=== PATIENT | female | born 1990 ===

== ENCOUNTER 2023-10-05 06:05 | Inpatient (IN) ==
[2023-10-05] MEDS ORDERED: Lidocaine 1% VIAL 10 MG/ML 30 ML VIAL INJ PRN (06:59)
[2023-10-05 08:42] LABS: ABS Basophils 0.1 10^3/uL (0.0-0.1); ABS Lymphocytes 1.1 10^3/uL (1.0-4.8); ABS Monocytes 0.8 10^3/uL (0.0-0.9); ABS Neutrophils 14.7 10^3/uL (1.5-7.6); Hemoglobin 13.9 g/dL (11.5-14.3); Lymphocyte % 6.9 %; Mean Corpuscular Hemoglobin 32.8 pg (27-33); Mean Corpuscular Hgb Conc 35.5 g/dL (31-36); Mean Corpuscular Volume 92.3 fL (80-97); Mean Platelet Volume 9.8 fL (7.5-11.2); Platelet Count 179 10^3/uL (150-450); Red Blood Count 4.23 10^6/uL (3.63-4.92); Red Cell Distribution Width 13.4 % (12-17); White Blood Count 16.6 10^3/uL (3.8-11.8)
[2023-10-05] MEDS: Oxytocin in LR 20,000 MILLI.UNIT/1,000 ML BAG IV ONE ×2 (09:26→10:02)
[2023-10-05] MEDS: Methylergonovine 0.2 mg AMPULE 1 ml AMP ONE (09:28)
[2023-10-05] MEDS ORDERED: Glycerin ADULT 2.4 gm SUPP PR PRN (10:26)
[2023-10-05] MEDS: Methylergonovine 0.2 mg AMPULE 1 ml AMP IM ONE (10:43)
[2023-10-05] MEDS: Oxytocin in LR 20,000 MILLI.UNIT/1,000 ML BAG IV SCH (10:56)
[2023-10-05] MEDS ORDERED: Lactated Ringers 1000 ml BAG 1,000 ML IV SCH (11:00)
[2023-10-05] MEDS: Witch Hazel PAD JAR TOPICAL PRN (11:48)
[2023-10-05] MEDS: Dibucaine 1% OINT 28.35 GM TUBE PR PRN (11:48)
[2023-10-05 13:14] LABS: Hematocrit 33.6 % (35-45)
[2023-10-05] MEDS: Lactated Ringers 1000 ml BAG 1,000 ML IV SCH (19:24)
[2023-10-05] MEDS: Buffered Lidocaine 1% SYRIN 1 ml INTRADERM ONE (19:24)
[2023-10-05] MEDS: Lactated Ringers 1000 ml BAG 1,000 ML IV ONE (19:24)
[2023-10-05 20:18] LABS: Urine Benzodiazepine Screen None Detected (None Detect); Urine Cannabinoids Screen None Detected (None Detect); Urine Opiates Screen None Detected (None Detect)
[2023-10-06 06:39] LABS: ABS Basophils 0.1 10^3/uL (0.0-0.1); ABS Lymphocytes 2.8 10^3/uL (1.0-4.8); ABS Monocytes 1.1 10^3/uL (0.0-0.9); ABS Neutrophils 9.6 10^3/uL (1.5-7.6); Eosinophil % 0.3 %; Hematocrit 27.7 % (35-45); Hemoglobin 9.9 g/dL (11.5-14.3); Lymphocyte % 20.5 %; Mean Corpuscular Hemoglobin 33.2 pg (27-33); Mean Corpuscular Hgb Conc 35.7 g/dL (31-36); Mean Platelet Volume 8.8 fL (7.5-11.2); Platelet Count 157 10^3/uL (150-450); Red Blood Count 2.98 10^6/uL (3.63-4.92); Red Cell Distribution Width 13.4 % (12-17); White Blood Count 13.6 10^3/uL (3.8-11.8)
[2023-10-06] MEDS: Polyethylene Glycol 3350 17 GM PACKET PO PRN (22:40)
[2023-10-07 09:29] VITALS: BP 110/71
== END 2023-10-07 13:54 | disposition home or self-care (01) | DRG 560 ==
LOC: MCHOBOUT 06:05 → MCHOB 06:58
PROVIDERS: ADMIT Midwife; ATTEND Advanced Practice Midwife